=== PATIENT | male | born 1985 | race Caucasian/White ===

== ENCOUNTER → 2020-01-21 | Outpatient (CLI) | payer BC ==
[~2020-01-21] MED LIST: NONE PER PT
== END | disposition home or self-care (01) ==
LOC: STAR 14:09
PROVIDERS: ATTEND Orthopaedic Surgery
DX: Z20.828 Contact with and (suspected) exposure to other viral communicable diseases (principal); M25.562 Pain in left knee; S82.142S Displaced bicondylar fracture of left tibia, sequela; X58.XXXS Exposure to other specified factors, sequela
CPT/HCPCS: 87635

== ENCOUNTER 2020-01-25 13:08 | Day surgery (SDC) | payer BC ==
[~2020-01-25] VITALS: Ht 188 cm; Wt 86.2 kg
[2020-01-25] MEDS ORDERED: FENTANYL PF 250 MCG/5ML ONE (13:15)
[2020-01-25] MEDS ORDERED: CHLORHEXIDINE 15 ML UDC MM ONE (13:30)
[2020-01-25] MEDS ORDERED: NO HOME MEDS PER PT (13:30)
[2020-01-25] MEDS ORDERED: LACTATED RINGERS 1,000 ML IV SCH (13:30)
[2020-01-25] MEDS ORDERED: CHLORHEXIDINE 15 ML UDC ONE (13:33)
[2020-01-25] MEDS ORDERED: MIDAZOLAM 1 MG/ML, 2ML ONE (14:19)
[2020-01-25] MEDS ORDERED: DEXAMETHASONE 4 MG/ML, 1ML ONE (15:02)
[2020-01-25] MEDS ORDERED: ONDANSETRON 2MG/ML, 2ML ONE (15:02)
[2020-01-25] MEDS ORDERED: CEFAZOLIN 1,000 MG ONE (15:02)
[2020-01-25] MEDS ORDERED: PROPOFOL 50 ML ONE (15:14)
[2020-01-25] MEDS ORDERED: EPINEPHRINE 1 MG/ML, 1ML ONE (15:50)
[2020-01-25] MEDS ORDERED: BUPIVACAINE/PF 0.5% ONE (15:50)
[2020-01-25] MEDS ORDERED: HYDROmorphone 1 MG/ML, 1ML INJ IVPush PRN (16:00)
[2020-01-25] MEDS ORDERED: hydrALAzine 20 MG/ML, 1ML IV PRN (16:00)
[2020-01-25] MEDS ORDERED: ONDANSETRON 2MG/ML, 2ML IVPush PRN (16:00)
[2020-01-25] MEDS ORDERED: EPHEDRINE 50 MG/ML, 1ML IM PRN (16:00)
[2020-01-25] MEDS ORDERED: LORazepam 2 MG/ML, 1ML IVPush PRN (16:00)
[2020-01-25] MEDS ORDERED: PROMETHAZINE 25 MG/ML, 1ML IVPush PRN (16:00)
[2020-01-25] MEDS ORDERED: FENTANYL PF 100 MCG/2ML IV PRN (16:00)
[2020-01-25] MEDS ORDERED: EPHEDRINE 50 MG/ML, 1ML IVPush PRN (16:00)
[2020-01-25] MEDS ORDERED: LABETALOL 5MG/ML, 20ML IV PRN (16:00)
[2020-01-25] MEDS ORDERED: ACETAMINOPHEN 325 MG TABLET PO PRN (16:00)
[2020-01-25] MEDS ORDERED: MEPERIDINE/PF 25MG/0.5ML IVPush PRN (16:00)
[2020-01-25] MEDS ORDERED: METHOCARBAMOL 1,000 MG in DEXTROSE 5% 100 ML IV PRN (16:00)
[2020-01-25] MEDS ORDERED: OXYcodone 5 MG/5 ML ORAL.SOL UDC ONE (16:29)
[2020-01-25] MEDS: OXYcodone 5 MG/5 ML ORAL.SOL UDC PO PRN ×2 (16:30→16:51)
== END 2020-01-25 17:10 | disposition home or self-care (01) ==
LOC: OUT 13:08
PROVIDERS: ATTEND Orthopaedic Surgery
DX: T84.197A Other mechanical complication of internal fixation device of bone of left lower leg, initial encounter (principal); M24.662 Ankylosis, left knee; Y83.8 Other surgical procedures as the cause of abnormal reaction of the patient, or of later complication, without mention of misadventure at the time of the procedure
CPT/HCPCS: 20680; 73560; J0171; J0690; J1100; J2250; J2405; J2704; J3010; J7120; 76000